=== PATIENT | male | born 1955 | race Caucasian/White ===

== ENCOUNTER → 2017-06-15 | Outpatient (CLI) | payer OTHER | END | disposition home or self-care (01) | LOC: CFH 10:25 | PROVIDERS: ATTEND Physician Assistant | DX: B18.2 Chronic viral hepatitis C (principal) | CPT/HCPCS: 36415; 76705; 82107; 86803; 87522 ==

== ENCOUNTER 2017-07-12 15:44 | Emergency (ER) | payer OTHER ==
[~2017-07-12] VITALS: Ht 180.3 cm; Wt 72.0 kg
[2017-07-12 15:54] VITALS: BP 125/75
[2017-07-12] MEDS ORDERED: DIPH,PERTUSS(ACELL),TET VAC/PF 0.5 ML IM-VACC ONE (16:30)
[2017-07-12] MEDS ORDERED: LIDOCAINE-MPF 1%, 5ML INFIL ONE (16:30)
[2017-07-12] MEDS ORDERED: IBUPROFEN 200 MG TABLET PO ONE (17:00)
[2017-07-12] MEDS ORDERED: IBUPROFEN 200 MG TABLET ONE (17:20)
[2017-07-12] MEDS ORDERED: HYDROcodone/APAP 5/325 TABLET ONE (17:20)
[2017-07-12] MEDS ORDERED: HYDROcodone/APAP 5/325 TABLET PO ONE (17:30)
[2017-07-12] MEDS ORDERED: BACITRACIN ZINC OINT 500U/GM, 0.9 GM ONE (18:13)
== END 2017-07-12 18:31 | disposition home or self-care (01) ==
LOC: ED 18:25
DX: S61.011A Laceration without foreign body of right thumb without damage to nail, initial encounter (principal); X58.XXXA Exposure to other specified factors, initial encounter; Y93.89 Activity, other specified; Y92.89 Other specified places as the place of occurrence of the external cause; Y99.8 Other external cause status
CPT/HCPCS: 12042; 99284

== ENCOUNTER 2018-05-26 17:12 | Emergency (ER) | payer OTHER ==
[~2018-05-26] VITALS: Ht 180.3 cm; Wt 78.2 kg
[2018-05-26 17:14] VITALS: BP 125/78
== END 2018-05-26 17:59 | disposition home or self-care (01) ==
LOC: ED 17:49
DX: K08.89 Other specified disorders of teeth and supporting structures (principal); I10 Essential (primary) hypertension; Z87.891 Personal history of nicotine dependence
CPT/HCPCS: 99283

== ENCOUNTER 2018-08-23 11:13 | Emergency (ER) | payer OTHER ==
[~2018-08-23] VITALS: Ht 180.3 cm; Wt 75.8 kg
[2018-08-23 11:16] VITALS: BP 120/59
[2018-08-23] MEDS ORDERED: KETOROLAC 30 MG/1 ML ONE (11:46)
[2018-08-23] MEDS ORDERED: KETOROLAC 30 MG/1 ML IM ONE (12:00)
== END 2018-08-23 13:05 | disposition home or self-care (01) ==
LOC: ED 13:01
DX: S83.91XA Sprain of unspecified site of right knee, initial encounter (principal); S80.811A Abrasion, right lower leg, initial encounter; X50.1XXA Overexertion from prolonged static or awkward postures, initial encounter; Y93.89 Activity, other specified; Y92.009 Unspecified place in unspecified non-institutional (private) residence as the place of occurrence of the external cause; Y99.8 Other external cause status
CPT/HCPCS: 29505; 73564; 96372; 99283; J1885

== ENCOUNTER 2019-07-29 19:47 | Emergency (ER) | payer OTHER ==
[~2019-07-29] VITALS: Ht 180.3 cm; Wt 70.9 kg
[2019-07-29] MEDS ORDERED: LIDOCAINE-MPF 1%, 5ML ONE (20:28)
[2019-07-29] MEDS ORDERED: LIDOCAINE-MPF 1%, 5ML INFIL ONE (20:30)
[2019-07-29] MEDS ORDERED: NEOSPORIN OINT. PKT 1 PACKET ONE (21:02)
== END 2019-07-29 21:11 | disposition home or self-care (01) ==
LOC: ED 20:00
DX: S60.131A Contusion of right middle finger with damage to nail, initial encounter (principal); I10 Essential (primary) hypertension; X58.XXXA Exposure to other specified factors, initial encounter; Y93.89 Activity, other specified; Y92.69 Other specified industrial and construction area as the place of occurrence of the external cause; Y99.0 Civilian activity done for income or pay
CPT/HCPCS: 11740; 99284